=== PATIENT | male | born 1955 | race Caucasian/White ===

== ENCOUNTER 2016-11-12 14:49 | Inpatient (IN) | payer OTHER ==
--- NOTE | ~2016-11-12 | CO ---
Unit #: [id number] #: [id number] Patient: SUMAN DEL CID [id number] [address] [place], [place] [address] [id number] I MR#: [id number] NAME: SUMAN DEL CID. ROOM: [facility] Age: 61 Sex: M Admission Date: 11/12/2016 : 1955 Attending Physician: Rolf Espino M.D. Primary Care Physician: Avelino Doctor Not In System Consultation Date: 11/13/2016 CONSULTATION REPORT REASON FOR CONSULTATION Antibiotic management in patient with sepsis. HISTORY OF PRESENT ILLNESS This is a 61-year-old male with a history of frequent urinary tract infections who takes Cipro and Bactrim suppressively for quite some time. The patient, per the urology team, underwent a transurethral resection of the prostate on 11/11/2016. The patient went home and reports a few hours after he arrived he began with rigors, nausea and fever up to 102.3. The patient was admitted to the hospital and was found also to have some hypoxia and renal failure. The patient has not had any fever since admission. He was admitted for sepsis and further evaluation. The patient currently is maintained in the ICU. He is not on any pressors. He reports feeling much better and is currently eating sausage biscuit when I entered the room. PAST MEDICAL HISTORY Includes: 1. Chronic urinary tract infections. 2. COPD. 3. Renal stones. PAST SURGICAL HISTORY Includes TURP. ALLERGIES Codeine. MEDICATIONS The patient is currently on meropenem. For other medications, please refer to patient's MAR. SOCIAL HISTORY The patient does have positive tobacco abuse. No alcohol or drug use. PHYSICAL EXAMINATION VITAL SIGNS: Temperature 97.8, pulse is 89, blood pressure 126/67, respiratory rate is 18. GENERAL: This is a no apparent distress male sitting up in the bed eating. HEENT/NECK: His pupils are equal. His neck is supple. CARDIOVASCULAR: S1, S2. Regular rate and rhythm. PULMONARY: Scattered rhonchi noted throughout with minimal wheeze. ABDOMEN: Positive bowel sounds. Soft and nontender with no CVA Unit #: [id number] #: [id number] Patient: SUMAN DEL CID tenderness. EXTREMITIES: No clubbing, cyanosis or edema. He does have a three-way catheter in place without any evidence of blood-tinged urine. DIAGNOSTIC STUDIES LABORATORY: BUN 14, creatinine 1.4 which was improved from 2.6 on admission. Sodium 139, potassium 3.9, chloride 112, CO2 20, bilirubin 0.8, AST 21, ALT is 12, lactic acid is 3.2. WBC 36,000 which is up from 31,000 on admission. Hemoglobin 10.2, hematocrit 31.4, platelets 159. Influenzae screen is negative. Urinalysis shows innumerable red blood cells, 5-10 WBCs, negative nitrites, 4+ blood. Urine cultures currently pending. Blood cultures currently pending. IMAGING: Shows multiple abnormalities, dilated small bowel loops in left upper quadrant favoring ileus. Right inguinal hernia. New mild hiatal hernia. Diverticula. Renal cysts. Mild dilatation of the distal ureters with Kraus catheter in place. Expected postoperative finding with small amount of gas in the bladder. Kraus catheter. Nonobstructive left renal calculi. V/Q scan is negative. Chest x-ray shows no active disease. IMPRESSION This Is a 61-year-old male status post TURP on 11/11/2016 who, at home, developed fever, rigors and nausea, found to be hypoxic with some initial acute kidney injury. The patient was admitted and currently has had no fever since admission but had elevated lactic acid, leukocytosis. CT scan as noted. At this time, suspect that patient had some bacterial translocation due to chronic urinary tract infections with his TURP procedure. Will continue to treat patient for sepsis with UTI and continue to follow blood cultures and urinary culture results. Will continue meropenem at this time secondary to history of frequent urinary tract infections in the past. No data on these are known at this time. Will repeat serum lactic acid today. Will check a CBC in the a.m. Will have the nursing staff call with any positive blood cultures and also check a BMP in the a.m. Thank you for allowing us to participate in the care of this patient and further recommendations to follow pending patients clinical course. Dictated by... Aileen Rincon A.P.R.N. for Haley Chicas/fifi TD: 11/13/2016 09:36 JOB #: [id number] Unit #: [id number] #: [id number] Patient: JENI DEL CIDMICHELE De La Cruz CONSULTATION REPORT Page 1 of 1 X X CONSULTATION REPORT
--- NOTE | ~2016-11-12 | CT4 ---
[facility] A Service of [facility] & [facility] RADIOLOGY TEXT RESULTS PATIENT: SUMAN DEL CID LOCATION: C3A 320-01 : 55 UNIT #: [id number] AGE: [address]: Rolf Espino MD SEX: M ORDER DR: [id number] [facility] [address] [facility]. [place], [place] [address] [id number] I MR#: [id number] Acc #: [id number] NAME: SUMAN DEL CID. : 1955 SEX: M STUDY DATE/TIME: 11/12/2016 18:35 [facility] STUDY DESCRIPTION: CT Abd and Pelv Wo Cont Attending Physician: Rolf Espino M.D. Ordering Physician: Rolf Espino M.D. Primary Care Physician: Generic Doctor Not In System MEDICAL IMAGING REPORT This report is preliminary unless electronic signature is present EXAM CT abdomen and pelvis without IV contrast, 11/12/2016 COMPARISON February 07, 2014 INDICATION 61-year-old male with fever and increasing abdominal pain after transurethral prostatectomy. Pain localizes to the lower abdomen. TECHNIQUE This CT exam was performed with one or more of the following radiation dose reduction techniques: automatic exposure control, adjustment of mA and/or kV according to patient size, and iterative reconstruction. FINDINGS Axial CT imaging abdomen and pelvis was performed without IV contrast. Coronal and sagittal reformats were constructed. Lack of IV contrast limits evaluation of adenopathy, vasculature and viscera. There is a moderate-sized fat-containing right inguinal hernia, increased from 2014. Kraus catheter is in place, terminating in the urinary bladder. There is nondependent gas within urinary bladder, possibly due to Kraus catheter manipulation. The questionable diverticula of the posterolateral aspects of the urinary bladder. There is mild distal bilateral hydroureter, likely an expected postoperative finding. There is a simple exophytic cyst in the left kidney measuring up to 3.2 cm. Low-density lesion in the right kidney measuring up to 9 mm is most in keeping with a benign cyst or angiomyolipoma. There are other cysts in the right kidney measuring up to 1.9 cm and 2 cm and there is a minimally rim-calcified hypoattenuating lesion in the inferior pole of the right kidney having internal Hounsfield unit of approximately 17. On comparison CT from [facility] on post contrasted exam this appeared to have Hounsfield Unit of STS. [facility] A Service of [facility] & [facility] RADIOLOGY TEXT RESULTS PATIENT: SUMAN DEL CID LOCATION: C3A PC 320-01 : 55 UNIT #: [id number] AGE: [address]: Rolf Espino MD SEX: M ORDER DR: approximately 27 which may suggest some enhancement but this cannot be stated definitively due to imaging on different scanners. There is a parapelvic simple cyst versus angiomyolipoma in the left kidney measuring up to 1.5 cm. There is an exophytic low-density lesion extending from the midpole of the right kidney measuring up to 1.1 cm which was likely present in 2013 and possibly slightly increased in size from that time. This has indeterminate Hounsfield units. There are 2 adjacent nonobstructive calculi in the superior pole left kidney. Adrenal glands are unremarkable. Multilevel mild degenerative facet disease of the lower lumbar spine. Marked chronic ossicle seen at the roof of the right acetabulum with associated subchondral degenerative cystic change at the roof of the right acetabulum and there are some chronic ossicles in the superior right hip joint as well. No acute fractures or suspicious osseous lesions. Mild degenerative changes at the right sacroiliac joint. Findings most consistent with atelectasis in both lower lobes. Mild centrilobular emphysema. Tiny 3.5 mm ground-glass nodule in the right middle lobe. Only incompletely imaged. New small hiatal hernia. Unenhanced liver, gallbladder, pancreas and spleen are unremarkable. There are abnormally gas-distended bowel loops in the left upper quadrant of the abdomen measuring up to 3.6 cm in caliber. No transition point is seen and findings may reflect a postoperative ileus. No evidence of acute appendicitis. No free fluid or pneumoperitoneum. There is normal caliber of the abdominal aorta with calcification of the abdominal aorta involving the origins of the superior mesenteric and bilateral renal arteries. No adenopathy. IMPRESSION 1. Multiple abnormally dilated small bowel loops in the left upper quadrant of the abdomen measuring up to 3.6 cm in caliber. No definite transition point is seen. While a small bowel obstruction cannot be entirely excluded the findings seem to favor ileus. Clinical correlation and imaging followup recommended. 2. Increasing size of moderate fat-containing right inguinal hernia. New mild hiatal hernia. 3. Apparent small diverticula in the posterolateral aspects of the bladder, one on each side. 4. Renal cysts as described. There are 2 indeterminate density lesions in the right kidney for which consideration of CT with and without IV contrast is recommended to document the lack of significant postcontrast enhancement. One of these lesions in the right kidney has rim calcification and one of the indeterminate lesions has increased slightly in size from comparison. 5. Mild dilatation of the distal ureters with a Kraus catheter in place in this patient post TURP. This may be an expected postoperative finding. There is also a small amount of gas within the bladder lumen, possibly due to Kraus catheter manipulation. Correlation to exclude signs of acute cystitis recommended. 6. Nonobstructive left-sided renal calculi. [facility] A Service of [facility] RADIOLOGY TEXT RESULTS PATIENT: SUMAN DEL CID LOCATION: A 320-01 : 55 UNIT #: [id number] AGE: [address]: Rolf Espino MD SEX: M ORDER DR: 7. Mild emphysema with a 4 mm nodule in the right middle lobe. This area of the lung was excluded from view on comparison. CT chest without IV contrast is recommended in 1 year to document stability. Dictated by... Franklin Reyes M.D. THIS IS AN ELECTRONICALLY VERIFIED REPORT Franklin Reyes M.D. at 11/17/2016 9:50 PM MICKIE/darwin TD: 11/13/2016 00:26 JOB #: [id number] MEDICAL IMAGING REPORT Page 1 of 1 COPY
--- NOTE | ~2016-11-12 | EKG ---
PATIENT: SUMAN DEL CID UNIT #: [id number] Ventricular Rate: 113 BPM Atrial Rate: 113 BPM P-R Interval: 156 ms QRS Duration: 88 ms Q-T Interval: 340 ms QTC Calculation(Bezet): 466 ms P Mitchell: 70 degrees Calculated R Mitchell: 70 degrees Calculated T Mitchell: 56 degrees Diagnosis Line: Sinus tachycardia with Premature atrial complexes Diagnosis Line: Otherwise normal ECG Diagnosis Line: No previous ECGs available Diagnosis Line: Confirmed by NEHA BLAIR MD ([id number]) on 11/13/2016 Diagnosis Line: 9:16:33 PM INTERPRETING MD: JOHNNIE CHIN
--- NOTE | ~2016-11-12 | DS ---
Unit #: [id number] #: [id number] Patient: SUMAN DEL CID [id number] [address] [address] [id number] I MR#: [id number] NAME: SUMAN DEL CID. ROOM: 320 Age: 61 Sex: M Admission Date: 11/12/2016 : 1955 Discharge Date: 11/15/2016 Attending Physician: Rolf Espino M.D. DISCHARGE SUMMARY ADMITTING DIAGNOSES 1. Urosepsis after transurethral resection of the prostate. 2. Acute renal failure. DISCHARGE DIAGNOSES 1. Urosepsis after transurethral resection of the prostate. 2. Acute renal failure. ADMITTING INFORMATION The patient is a pleasant 61-year-old gentleman who had undergone transurethral resection of the prostate the day prior. He passed a voiding trial, was afebrile and was doing well on the morning of admission, but several hours later, he developed a fever at home to 102. He immediately presented to the emergency room. At that time, [place] [address] and a creatinine, which had been normal earlier that morning, which had increased to 2.6. He was admitted for further management. HOSPITAL COURSE The patient was admitted. He was given extensive IV antibiotic therapy. Blood and urine cultures were obtained. He was followed by the ID service. He was eventually transitioned to ceftriaxone. All blood and urine cultures are negative at this time. His white blood cell count is down to 10.3. He is afebrile. His creatinine is 1.2. He passed a voiding trial yesterday. It should also be noted that he was hypoxic on admission. He underwent a V/Q scan, which was negative. The patient was followed by the ID service and the ICU service. He will be discharged home on Omnicef 300 mg p.o. b.i.d. x12 days. He will follow up with me in 2 weeks. He will follow up sooner with any concerns including temperature greater than 101, inability to tolerate fluids, pain not controlled by p.o. pain medications, chest pain, shortness of breath, unilateral lower extremity swelling, or any other concerns. Dictated by... Rolf sEpino M.D. DELORES/ebonie TD: 11/15/2016 07:54 JOB #: [id number] Unit #: [id number] #: [id number] Patient: SUMAN DEL CID Dorothy DISCHARGE SUMMARY Page 1 of 1 X Rolf Espino MD X DISCHARGE SUMMARY
--- NOTE | ~2016-11-12 | NM69 ---
[facility] A Service of [facility] & [facility] RADIOLOGY TEXT RESULTS PATIENT: SUMAN DEL CID LOCATION: [address]19 : 55 UNIT #: [id number] AGE: [address]: Rolf Espino MD SEX: M ORDER DR: [id number] [facility] [address] [facility]. [place], [place] [address] [id number] I MR#: [id number] Acc #: [id number] NAME: SUMAN DEL CID. : 1955 SEX: M STUDY DATE/TIME: 11/12/2016 18:09 UNIT: [facility] ROOM: [facility] STUDY DESCRIPTION: NM Pulm Vent and Perf Attending Physician: Rolf Espino M.D. Ordering Physician: Debi Carreno M.D. Primary Care Physician: Generic Doctor Not In System MEDICAL IMAGING REPORT This report is preliminary unless electronic signature is present EXAM VQ lung scan, 11/12/2016 HISTORY Shortness of air today. FINDINGS Ventilation scan was performed with 35.2 mCi technetium DTPA. Perfusion scan was performed with 6 mCi technetium MAA. There is homogeneous tracer uptake in both lungs on the ventilation and perfusion scans. No focal perfusion defect. No VQ mismatch. IMPRESSION Negative VQ lung scan. Dictated by... uSdeep Malave M.D. THIS IS AN ELECTRONICALLY VERIFIED REPORT Sudeep Malave M.D. at 11/13/2016 2:40 PM KRISTA/darwin TD: 11/12/2016 23:59 JOB #: [id number] MEDICAL IMAGING REPORT Page 1 of 1 COPY
--- NOTE | ~2016-11-12 | CR63 ---
[facility] A Service of [facility] RADIOLOGY TEXT RESULTS PATIENT: SUMAN DEL CID [facility] UNIT #: [id number] AGE: [address]: Rolf Espino MD SEX: M ORDER DR: [id number] [address] [address] [id number] I MR#: [id number] Acc #: [id number] NAME: SUMAN DEL CID : 1955 SEX: M STUDY DATE/TIME: 11/14/2016 10:44 UNIT: [facility] PCU ROOM: 320 STUDY DESCRIPTION: CR Chest 2 View Attending Physician: Rolf Espino M.D. Ordering Physician: Tabby Webber M.D. Primary Care Physician: Generic Doctor Not In System MEDICAL IMAGING REPORT This report is preliminary unless electronic signature is present EXAM Chest x-ray. HISTORY Hypoxia with fever onset today. TECHNIQUE 2 views of the chest were obtained and compared to 11/12/2016. FINDINGS PA and lateral examination of the chest upright shows a good expansion of the parenchyma with a normal distribution of the pulmonary vascularity. There is no indication of congestion, effusion, infiltrate, tumor, or nodular density. The pleural reflections and diaphragmatic contours are normal. The cardiac silhouette and mediastinal anatomy is within normal limits. IMPRESSION Normal chest. Dictated by... Vikram Mandujano M.D. THIS IS AN ELECTRONICALLY VERIFIED REPORT Vikram Mandujano M.D. at 11/14/2016 6:01 PM RLF/baldev TD: 11/14/2016 13:36 JOB #: [id number] MEDICAL IMAGING REPORT [facility] A Service of [facility] RADIOLOGY TEXT RESULTS PATIENT: SUMAN DEL CID [facility] : 55 UNIT #: [id number] AGE: [address]: Rolf Espino MD SEX: M ORDER DR: Page 1 of 1 COPY
--- NOTE | ~2016-11-12 | CR72 ---
[facility] A Service of [facility] & [facility] RADIOLOGY TEXT RESULTS PATIENT: SUMAN DEL CID LOCATION: CICCU3 CICCU3-19 : 55 UNIT #: [id number] AGE: [address]: Rolf Espino MD SEX: M ORDER DR: [id number] [facility] [address] [facility] [place], [place] [address] [id number] E MR#: [id number] Acc #: [id number] NAME: SUMAN DEL CID : 1955 SEX: M STUDY DATE/TIME: 11/12/2016 14:39 UNIT: [facility] ROOM: STUDY DESCRIPTION: CR Chest Single View Portable Attending Physician: Debi Carreno M.D. Ordering Physician: Debi Carreno M.D. Primary Care Physician: Generic Doctor MEDICAL IMAGING REPORT This report is preliminary unless electronic signature is present EXAM Portable chest. DATE OF EXAM 11/12/2016 HISTORY Hypoxia today. Fever. FINDINGS Mild hyperinflation of both lungs. Cardiac size and pulmonary vascularity are normal. Mild interstitial prominence bilaterally could be due to scarring or atelectasis, slightly greater in the lung bases. Minimal pleural thickening in the lung apices. Mild right thoracic curve. IMPRESSION No definite active disease. Dictated by... Sudeep Malave M.D. THIS IS AN ELECTRONICALLY VERIFIED REPORT Sudeep Malave M.D. at 11/12/2016 11:36 PM KRISTA/michaelle TD: 11/12/2016 17:23 JOB #: [id number] MEDICAL IMAGING REPORT Page 1 of 1 COPY
--- NOTE | ~2016-11-12 | CO ---
Unit #: [id number] #: [id number] Patient: SUMAN DEL CID [id number] [address] [place], [place] [address] [id number] I MR#: [id number] NAME: SUMAN DEL CID. ROOM: [facility] Age: 61 Sex: M Admission Date: 11/12/2016 : 1955 Attending Physician: Rolf Espino M.D. Primary Care Physician: Generic Doctor Not In System CONSULTATION REPORT REASON FOR CONSULTATION Critical care management. CHIEF COMPLAINT Shortness of breath. 61-year-old male with a past medical history of chronic urinary tract infection, status post recent prostate resection, who presents with a complaint of fever, chills, rigors and also was complaining of shortness of breath. Oxygen saturation was 80%. Was started on IV antibiotics and oxygen and V/Q scan is negative. I am seeing the patient at bedside complaining of mild shortness of breath. Denies any nausea, vomiting, diarrhea. No abdominal pain. REVIEW OF SYSTEMS Positive for pallor. No edema, no cyanosis, no jaundice. The rest as per History of Present Illness. The rest of the twelve point review of systems has been reviewed and is negative. PAST MEDICAL HISTORY Significant for: 1. Renal stones. 2. Chronic urinary tract infection. 3. COPD. MEDICATIONS 1. Flomax. 2. Bactrim. ALLERGIES Codeine. SOCIAL HISTORY One and a half pack smoker per day. Denies alcohol or drug abuse. PHYSICAL EXAMINATION VITAL SIGNS: Temperature 99, pulse 87, respirations 12, blood pressure 137/70. NEUROLOGICAL: Awake, alert, oriented. No neuro deficit. HEENT: PERRLA. NECK: Supple. No JVD. CHEST: Bilateral air entry, bilateral mild rhonchi. GI: Nontender, soft. Bowel sounds positive. Unit #: [id number] #: [id number] Patient: SUMAN DEL CID EXTREMITIES: No edema. SKIN: No rashes, no ulcers. LYMPHATIC: No lymphadenopathy. DIAGNOSTIC STUDIES LABORATORY: Creatinine is 1.4, sodium 139, potassium 3.9, chloride is 112, bicarb is 20. White count 36, hemoglobin 10, hematocrit 31, platelet count is 159. IMAGING: On admission, a chest x-ray was done which showed no acute disease. CT of the abdomen and pelvis has shown multiple dilated small bowel loops in the left upper quadrant of the abdomen measuring up to 3.6 cm. No definite transition point. Increasing size of fat containing right inguinal hernia. Small diverticula in the posterolateral aspect of the bladder. Renal cysts. Mild dilatation of the ureters and nonobstructive left sided stone. 4 mm nodule in the right lower lobe of the lung. ASSESSMENT AND PLAN 1. Urosepsis. 2. Chronic obstructive pulmonary disease. 3. Hypoxia. 4. Recent transurethral resection of prostate. Plan is to continue IV fluid, monitoring in ICU, monitor creatinine, GI and DVT prophylaxis. Continue bronchodilator, ICU protocol. The patient will be closely monitored. Please see orders for detailed plan. Thank you very much for this consultation. Dictated by... Haley Mcneal/fifi TD: 11/13/2016 08:17 JOB #: [id number] CONSULTATION REPORT Page 1 of 1 X Tabby Webber MD X CONSULTATION REPORT
--- NOTE | ~2016-11-12 | HP ---
Unit #: [id number] #: [id number] Patient: SUMAN CISNEROS [id number] [address] [place], [place] [address] [id number] E MR#: [id number] NAME: SUMAN CISNEROS ROOM: Age: 61 Sex: M Admission Date: 11/12/2016 : 1955 Attending Physician: Debi Carreno M.D. Primary Care Physician: Generic Doctor Not In System HISTORY AND PHYSICAL ADMITTING DIAGNOSES 1. Urosepsis. 2. Hypoxia. HISTORY OF PRESENT ILLNESS Mr. Cisneros is a 61-year-old male with chronic urinary tract infections. He underwent transurethral resection of his prostate at another facility yesterday. He was discharged this morning. He was doing well but he developed fever to 102 this afternoon. He was sent immediately to the emergency room. Upon his arrival in the emergency room he was found to be hypoxic with the sats in the mid 80s as well as with an elevated white blood cell count at 33,000 and acute renal failure with a creatinine of 2.6. He says he has slight shortness of breath but he denies chest pain. His urine is blood tinged. PAST MEDICAL HISTORY Chronic urinary tract infections. PAST SURGICAL HISTORY Transurethral resection of the prostate. MEDICATIONS AND ALLERGIES Documented in the chart. REVIEW OF SYSTEMS Positive for shortness of breath. Positive for fever. PHYSICAL EXAMINATION VITAL SIGNS: Temperature of 102 at home, here it is 98.7. Blood pressure 94/69. Pulse 111. Sating 98% on 4 L nasal cannula. GENERAL: In general he is in minimal distress. HEENT: Normocephalic and atraumatic. LUNGS: The patient is breathing comfortably. ABDOMEN: Soft, nontender, nondistended. GENITOURINARY: I placed a 22 Sinhala three-way catheter. His urine was actually only very minimally bloody. It irrigates clear. He was placed continuous bladder irrigation. EXTREMITIES: No cyanosis, clubbing or edema. DIAGNOSTIC STUDIES LABORATORY: Labs are significant for a white blood cell count of 31,000 and hemoglobin of 11.6, creatinine of 2.6, potassium is 3.4. Unit #: [id number] #: [id number] Patient: SUMAN CISNEROS ASSESSMENT AND PLAN Likely urosepsis with acute renal failure and hypoxia: We need to rule out a pulmonary embolism with a V/Q scan. He has already been given Zosyn, tobramycin and vancomycin. I will start him on meropenem. We will obtain an ID consult. We will also have Dr. Webber assist us with ICU care. Dictated by Haley Reina/melanie TD: 11/12/2016 17:31 JOB #: [id number] HISTORY AND PHYSICAL Page 1 of 1 X Rolf Espino MD X HISTORY AND PHYSICAL
[2016-11-12 15:29] LABS: ALBUMIN SERUM 3.8 g/dL (3.5-5.0); BILIRUBIN, DIRECT 0.2 mg/dL (0.0-0.2); BILIRUBIN,INDIRECT 0.6 mg/dL (0.0-0.9); BILIRUBIN,TOTAL 0.8 mg/dL (0.2-2.0); BUN/CREATININE RATIO 7.3; CALCIUM SERUM 8.2 mg/dL (8.4-10.2); CREATININE SERUM 2.6 mg/dL (0.6-1.4); GLOM FILT RATE Estimated 25.5 mL/min (>60); MAGNESIUM 1.1 mg/dL (1.6-3.0); POTASSIUM 3.4 mmol/L (3.5-5.1); PROTEIN TOTAL SERUM 6.7 g/dL (6.0-8.3)
[2016-11-12 15:32] LABS: BASOPHIL% 0.1 % (0-2.5); HEMATOCRIT 35.6 % (38.0-50.0); HEMOGLOBIN 11.6 gm/dL (13.0-16.0); INR 1.1; LYMPHOCYTE# 0.7 X10e3 (1.0-3.5); LYMPHOCYTE% 2.2 % (17.0-45.0); MEAN CELL VOLUME 89.4 FL (83-96); MEAN CORPUSCULAR HEMOGLOBIN 29.2 PG (28-34); MEAN CORPUSCULAR HGB CONC 32.6 g/dL (30-36); MEAN PLATELET VOLUME 9.1 FL (6.5-11.5); MONOCYTE# 4.1 X10e3 (0-1.0); MONOCYTE% 13.2 % (3.0-12.0); NEUTROPHIL# 26.3 X10e3 (1.5-7.1); NEUTROPHIL% 84.5 % (40-75); PARTIAL THROMBOPLASTIN TIME 23.4 SECONDS (23.5-31.3); PLATELET COUNT 170 X10e3 (140-420); PROTHROMBIN TIME (PATIENT) 11.4 SECONDS (9.6-11.5); RED BLOOD COUNT 3.98 X10e (3.90-5.60); RED CELL DISTRIBUTION WIDTH 21.2 % (11.0-15.5); WHITE BLOOD COUNT 31.2 X10e3 (4.0-10.5)
[2016-11-12 16:06] LABS: DIFF IND NO
[2016-11-12 17:07] LABS: URINE SOURCE CLEAN CATCH
[2016-11-12 17:25] LABS: URINE APPEARANCE CLOUDY; URINE BILIRUBIN NEG (NEG); URINE BLOOD 4+ (NEG); URINE COLOR RED; URINE GLUCOSE NORM (NORM); URINE KETONE NEG (NEG); URINE LEUKOCYTE ESTERASE 2+ (NEG); URINE NITRATE NEG (NEG); URINE PROTEIN 3+ (NEG); URINE SPECIFIC GRAVITY 1.005 (1.003-1.035); URINE UROBILINOGEN NORM (NORM)
[2016-11-12 17:53] LABS: CULTURE INDICATED? YES; URBCS1 AUWI INNUM /[HPF] (0-2); URINE SQUAMOUS EPITHELIAL CELL OCCAS /[HPF]
[2016-11-12 17:58] LABS: INFLUENZA A NEG (NEG); INFLUENZA B NEG (NEG)
[2016-11-13 05:45] LABS: BASOPHIL% 0.1 % (0-2.5); HEMATOCRIT 31.4 % (38.0-50.0); HEMOGLOBIN 10.2 gm/dL (13.0-16.0); LYMPHOCYTE# 1.7 X10e3 (1.0-3.5); LYMPHOCYTE% 4.8 % (17.0-45.0); MEAN CELL VOLUME 89.8 FL (83-96); MEAN CORPUSCULAR HEMOGLOBIN 29.2 PG (28-34); MEAN CORPUSCULAR HGB CONC 32.5 g/dL (30-36); MEAN PLATELET VOLUME 9.6 FL (6.5-11.5); MONOCYTE% 16.5 % (3.0-12.0); NEUTROPHIL# 28.5 X10e3 (1.5-7.1); NEUTROPHIL% 78.6 % (40-75); PLATELET COUNT 159 X10e3 (140-420); RED BLOOD COUNT 3.49 X10e (3.90-5.60); RED CELL DISTRIBUTION WIDTH 20.8 % (11.0-15.5); WHITE BLOOD COUNT 36.2 X10e3 (4.0-10.5)
[2016-11-13 05:49] LABS: DIFF IND YES
[2016-11-13 06:09] LABS: ANISOCYTOSIS MOD; PLATELET ESTIMATE NORMAL (NORMAL)
[2016-11-13 06:20] LABS: CALCIUM SERUM 7.7 mg/dL (8.4-10.2); CREATININE SERUM 1.4 mg/dL (0.6-1.4); GLOM FILT RATE Estimated 53.9 mL/min (>60); POTASSIUM 3.9 mmol/L (3.5-5.1)
[2016-11-14 02:30] LABS: BASOPHIL# 0.1 X10e3 (0-0.3); BASOPHIL% 0.4 % (0-2.5); DIFF IND NO; EOSINOPHIL% 0.1 % (0.0-7.0); HEMATOCRIT 29.1 % (38.0-50.0); HEMOGLOBIN 9.7 gm/dL (13.0-16.0); LYMPHOCYTE# 1.5 X10e3 (1.0-3.5); LYMPHOCYTE% 9.4 % (17.0-45.0); MEAN CELL VOLUME 89.4 FL (83-96); MEAN CORPUSCULAR HEMOGLOBIN 29.8 PG (28-34); MEAN CORPUSCULAR HGB CONC 33.3 g/dL (30-36); MEAN PLATELET VOLUME 9.3 FL (6.5-11.5); MONOCYTE% 19.3 % (3.0-12.0); NEUTROPHIL# 11.1 X10e3 (1.5-7.1); NEUTROPHIL% 70.8 % (40-75); PLATELET COUNT 148 X10e3 (140-420); RED BLOOD COUNT 3.26 X10e (3.90-5.60); RED CELL DISTRIBUTION WIDTH 21.7 % (11.0-15.5); WHITE BLOOD COUNT 15.7 X10e3 (4.0-10.5)
[2016-11-14 02:52] LABS: ALBUMIN SERUM 3.2 g/dL (3.5-5.0); BILIRUBIN,TOTAL 0.3 mg/dL (0.2-2.0); CALCIUM SERUM 7.3 mg/dL (8.4-10.2); GLOM FILT RATE Estimated 80.9 mL/min (>60); POTASSIUM 3.5 mmol/L (3.5-5.1); PROTEIN TOTAL SERUM 5.9 g/dL (6.0-8.3)
[2016-11-14 04:58] LABS: ARTERIAL BLD GAS O2 SATURATION 93.1 % (90.0-100.0); ARTERIAL BLOOD GAS CARBOXY HB 0.6 %sat (0.0-9.0); ARTERIAL BLOOD GAS HCO3 21.8 mmol/L; ARTERIAL BLOOD GAS MET HB 0.9 %sat (0.0-2.0); ARTERIAL BLOOD GAS PCO2 32.9 mmHg (35.0-45.0); ARTERIAL BLOOD GAS pH 7.431 (7.350-7.450)
[2016-11-14 05:01] LABS: ARTERIAL BLOOD GAS ALLEN TEST NORMAL; ARTERIAL BLOOD GAS ART SITE RIGHT RADIAL; ARTERIAL BLOOD GAS DELIVERY ROOM AIR; ARTERIAL BLOOD GAS PO2 67.1 mmHg (80.0-100); ARTERIAL DRAW? YES
[2016-11-15 03:08] LABS: BASOPHIL% 0.5 % (0-2.5); EOSINOPHIL% 0.2 % (0.0-7.0); HEMATOCRIT 30.3 % (38.0-50.0); HEMOGLOBIN 10.2 gm/dL (13.0-16.0); LYMPHOCYTE# 1.4 X10e3 (1.0-3.5); LYMPHOCYTE% 13.3 % (17.0-45.0); MEAN CELL VOLUME 89.2 FL (83-96); MEAN CORPUSCULAR HEMOGLOBIN 29.9 PG (28-34); MEAN CORPUSCULAR HGB CONC 33.6 g/dL (30-36); MEAN PLATELET VOLUME 8.6 FL (6.5-11.5); MONOCYTE# 2.2 X10e3 (0-1.0); MONOCYTE% 21.3 % (3.0-12.0); NEUTROPHIL# 6.7 X10e3 (1.5-7.1); NEUTROPHIL% 64.7 % (40-75); PLATELET COUNT 148 X10e3 (140-420); RED BLOOD COUNT 3.39 X10e (3.90-5.60); RED CELL DISTRIBUTION WIDTH 21.4 % (11.0-15.5); WHITE BLOOD COUNT 10.3 X10e3 (4.0-10.5)
[2016-11-15 03:10] LABS: DIFF IND NO
[2016-11-15 03:25] LABS: BUN/CREATININE RATIO 9.16; CREATININE SERUM 1.2 mg/dL (0.6-1.4); GLOM FILT RATE Estimated 64.9 mL/min (>60); MAGNESIUM 2.1 mg/dL (1.6-3.0); POTASSIUM 3.5 mmol/L (3.5-5.1)
[2016-11-15] MEDS ORDERED: HYDROCODON-ACE1 EAC9 PO (07:27)
[2016-11-15] MEDS ORDERED: OMNICEF300 M1 PO (07:27)
== END 2016-11-15 09:21 | disposition home or self-care (01) | DRG 862 ==
LOC: CED 14:49 → CEDOF 16:50 → CICCU3 20:47 → C3A PCU 11-13 17:36
PROVIDERS: Emergency Medicine; Internal Medicine; Urology
DX: T81.4XXA Infection following a procedure, initial encounter (principal); A41.51 Sepsis due to Escherichia coli [E. coli]; R65.21 Severe sepsis with septic shock; N17.9 Acute kidney failure, unspecified; N39.0 Urinary tract infection, site not specified; F17.210 Nicotine dependence, cigarettes, uncomplicated; J44.9 Chronic obstructive pulmonary disease, unspecified; Z88.5 Allergy status to narcotic agent; R09.02 Hypoxemia
CPT/HCPCS: 36415; 36600; 71010; 71020; 74176; 78582; 80048; 80053; 80076; 81003; 82803; 83605; 83735; 84484; 85025; 85610; 85730; 87040; 87086; 87804; 93005; 94760; 96361; 96365; 96367; 99285; A9540; A9567; J0610; J0696; J1650; J2185; J2270; J2405; J2543; J3260; J3370

== ENCOUNTER → 2016-12-30 | Outpatient (CLI) | payer OTHER ==
[~2016-12-30] MED LIST: HYDROCODON-ACE1 EAC9 PO; OMNICEF300 M1 PO
--- NOTE | ~2016-12-30 | NM8 ---
[facility] A Service of [facility] & [facility] / [facility] RADIOLOGY TEXT RESULTS PATIENT: SUMAN DEL CID LOCATION: [facility] : 55 UNIT #: [id number] AGE: [address]: Rolf Espino MD SEX: M ORDER DR: [id number] [facility] [address] [facility] [place], [place] [address] [id number] O MR#: [id number] Acc #: [id number] NAME: SUMAN DEL CID : 1955 SEX: M STUDY DATE/TIME: 12/30/2016 12:41 UNIT: [facility] ROOM: STUDY DESCRIPTION: IA Bone or Joint Whole Body Attending Physician: Rolf Espino M.D. Referring Physician: Rolf Espino M.D. Ordering Physician: Rolf Espino M.D. Primary Care Physician: Armin Almendarez M.D. MEDICAL IMAGING REPORT This report is preliminary unless electronic signature is present EXAM Whole-body bone scan HISTORY 61-year-old male diagnosed with prostate cancer 1 month ago. Presents for staging and surveillance of metastatic disease. COMPARISON C-spine series 12/30/2016. CT abdomen and pelvis 11/12/2016. FINDINGS Whole body and selected spot images were performed of the axial and appendicular skeleton following the intravenous administration of 28.5 mCi technetium-99m MDP. Examination demonstrates multiple foci of increased uptake in the upper cervical spine on the left and the [id number] cervical spine on the right. This is felt to correspond to facet arthropathy as noted on conventional radiographs. Mild increased uptake in the lower lumbar spine compatible with mild facet arthropathy and degenerative disc changes as noted on the patient's prior CT scan. No abnormal uptake identified to suggest osseous metastatic disease. There is increased uptake within the right foot at the level of the second and third phalanges or MTP joints. This is nonspecific, possibly post-traumatic or arthritic in nature. 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 Bilateral renal activity and normal bladder activity noted. A linear uptake is seen along the lateral aspect of the distal right thigh which represents a soft tissue uptake. This is nonspecific and may be related to recent soft tissue injury or infection. Correlate with patient's clinical presentation. Patient states that they are recovering from sepsis, but no details regarding the involvement was provided. [facility] A Service of [facility] RADIOLOGY TEXT RESULTS PATIENT: SUMAN DEL CID LOCATION: [facility] : 55 UNIT #: [id number] AGE: [address]: Rolf Espino MD SEX: M ORDER DR: IMPRESSION 1. No abnormal uptake identified to suggest osseous metastatic disease. 2. Degenerative uptake noted within the posterior cervical spine most likely related to facet disease as noted on conventional radiographs. Mild increased uptake also seen in the lumbar spine felt to be related to degenerative disc changes and facet disease. 3. Linear uptake within the right lateral thigh soft tissues nonspecific. Potentially this could be related to contamination but appears to represent true soft tissue uptake. This could be on the basis of recent trauma or infection. Correlate with clinical presentation. 4. Foci of increased uptake within the right forefoot most likely at the second and third phalanges or MTP joints. This may be arthritic or degenerative in nature or posttraumatic. Dictated by... Mitch Recinos M.D. THIS IS AN ELECTRONICALLY VERIFIED REPORT Mitch Recinos M.D. at 12/31/2016 3:31 PM OLI/kwesi TD: 12/31/2016 09:18 JOB #: [id number] MEDICAL IMAGING REPORT Page 1 of 1 COPY
--- NOTE | ~2016-12-30 | CR61 ---
[facility] A Service of [facility] RADIOLOGY TEXT RESULTS PATIENT: SUMAN DEL CID LOCATION: [facility] : 55 UNIT #: [id number] AGE: [address]: Rolf Espino MD SEX: M ORDER DR: [id number] [place] [id number] [facility]. [place], [place] [address] [id number] O MR#: [id number] Acc #: [id number] NAME: SUMAN DEL CID : 1955 SEX: M STUDY DATE/TIME: 12/30/2016 14:24 UNIT: [facility] ROOM: STUDY DESCRIPTION: CR Cervical Spine Min 5 Views Attending Physician: Rolf Espino M.D. Referring Physician: Rolf Espino M.D. Ordering Physician: Rolf Espino M.D. Primary Care Physician: Armin Almendarez M.D. MEDICAL IMAGING REPORT This report is preliminary unless electronic signature is present EXAM Cervical spine, total of 7 views HISTORY Abnormal uptake on bone scan. History of prostate cancer. TECHNIQUE AP, lateral, open-mouth and oblique views are submitted. FINDINGS Seven cervical vertebral bodies are present. There is disc space narrowing at C5-6 and C6-7. There is underlying facet disease throughout the cervical spine from C3 through T1. There is outlet foraminal narrowing in the lower cervical region at multiple levels. These areas correspond to the abnormalities identified on the bone scan, they are probably best demonstrated on the anterior and posterior images of the bone scan. No lytic or blastic lesions are identified. CONCLUSION Advanced multilevel cervical degenerative disc and facet disease which I think corresponds to the patient's bone scan of 12/30/2016. No lytic or blastic lesions to suggest metastatic disease. Dictated by... Jack Tamez M.D. THIS IS AN ELECTRONICALLY VERIFIED REPORT Jack Tamez M.D. at 12/31/2016 7:28 AM DO/marisol TD: 12/30/2016 22:52 [facility] A Service of [facility] & [place] [facility] RADIOLOGY TEXT RESULTS PATIENT: SUM[facility] DEL [facility]ID [id number] 55 UNIT #: [id number] AGE: [address]: Rolf Espino MD SEX: M ORDER DR: JOB #: [id number] MEDICAL IMAGING REPORT Page 1 of 1 COPY
== END | disposition home or self-care (01) ==
LOC: CNUC 09:35
DX: C61 Malignant neoplasm of prostate (principal); M48.02 Spinal stenosis, cervical region
CPT/HCPCS: 72050; 78306; A9503